=== PATIENT | female | born 1970 | race Hispanic/Latino ===

== ENCOUNTER → 2020-06-26 | Outpatient (CLI) | payer BC | LOC: US 15:11 | PROVIDERS: ATTEND Internal Medicine | DX: N83.201 Unspecified ovarian cyst, right side (principal); R31.9 Hematuria, unspecified | CPT/HCPCS: 76770; 76856 ==

== ENCOUNTER → 2020-11-08 | Day surgery (SDC) | payer OTHER ==
[~2020-11-08] MED LIST: CEFTRIAXONE 1 GM VIAL ONE; IOPAMIDOL 300MG/ML 50ML INFUS..BTL IV ONE; SODIUM CHLORIDE 0.9% 50ML 50 ML ONE
[2020-11-08 09:10] VITALS: BP 131/86
== END | disposition home or self-care (01) ==
LOC: OR 06:02
PROVIDERS: ATTEND Urology
DX: N20.0 Calculus of kidney (principal); R31.29 Other microscopic hematuria; E66.01 Morbid (severe) obesity due to excess calories; R35.1 Nocturia; I10 Essential (primary) hypertension; Z68.30 Body mass index [BMI] 30.0-30.9, adult; Z87.442 Personal history of urinary calculi; N35.92 Unspecified urethral stricture, female
CPT/HCPCS: 74018; 74420; 93005; C1758; J0690; J0696; U0002